=== PATIENT | male | born 1965 | race Caucasian/White ===

== ENCOUNTER 2019-08-25 13:05 | Inpatient (IN) | payer OTHER ==
[~2019-08-25] VITALS: Ht 154.9 cm; Wt 45.4 kg
[2019-08-25 13:07] VITALS: BP 142/81
--- NOTE | 2019-08-25 14:18 | NUR ---
SOCIAL SERVICE HERE TO FIND OUT WHERE TO PLACE PT WHILE BOTH HIS PARENTS ARE ADMITTED HERE.
[2019-08-25 16:00] VITALS: BP 151/90
[2019-08-25] MEDS ORDERED: HYDROCODON-ACE1 EACH PO (16:39)
[2019-08-25] MEDS ORDERED: PRAVACHOL40 MG PO (16:39)
[2019-08-25] MEDS ORDERED: OMEPRAZOLE40 MG PO (16:40)
[2019-08-25] MEDS ORDERED: ZANAFLEX4 M2 PO (16:40)
[2019-08-25] MEDS ORDERED: LEVOTHYROXINE50 MCG PO (16:40)
[2019-08-25] MEDS ORDERED: IRON325 M1 PO (16:41)
[2019-08-25] MEDS ORDERED: METFORMIN HCL500 M3 PO (16:41)
[2019-08-25] MEDS ORDERED: B-12500 MC1 PO (16:41)
[2019-08-25] MEDS ORDERED: VITAMIN D31000 UNI1 PO (16:42)
--- NOTE | 2019-08-25 16:53 | NUR ---
Pt arrived to floor without iv from ER. Pt currently only has iv morphine prn for severe pain ordered. Pt currently denies any pain. Spoke with Dr. Bernal regarding this and she states to leave iv out at this time. Pt had stated to me that he did not like IV's and this is why I called to question this as well as what was stated above.
[2019-08-25 17:05] LABS: BASO % 0.7 % (0.0-1.0); EOS % 0.9 % (1.0-4.0); HEMATOCRIT 39.1 % (42.0-52.0); HEMOGLOBIN 13.4 g/dl (14.0-18.0); LYMPH # 1.2 10*3/uL (1.3-4.4); LYMPH % 26.1 % (27.0-41.0); MEAN CELL VOLUME 98.2 fl (80.0-94.0); MEAN CORPUSCULAR HGB 33.7 pg (27.0-31.0); MEAN CORPUSCULAR HGB CONC 34.3 g/dl (33.0-37.0); MEAN PLATELET VOLUME 9.5 fl (9.6-12.3); MONO # 0.4 10*3/uL (0.1-1.0); MONO % 9.3 % (3.0-9.0); NEUT # 2.8 10*3/uL (2.3-7.9); NEUT % 62.5 % (47.0-73.0); PLATELET COUNT AUTOMATED 137 10*3/uL (130-400); RED BLOOD COUNT 3.98 10*6/uL (4.50-5.90); RED CELL DISTRI WIDTH 12.8 % (0-14.5); WHITE BLOOD COUNT 4.4 10*3/uL (4.8-10.8)
[2019-08-25 17:24] LABS: ALBUMIN 3.6 gm/dl (3.1-4.5); ALKALINE PHOSPHATASE 59 U/L (45-117); BUN 12 mg/dl (7-24); CHLORIDE 107 mmol/L (98-107); CREATININE 0.92 mg/dL (0.70-1.30); POTASSIUM 3.6 mmol/L (3.5-5.1); SGOT/AST 14 IU/L (3-35); SGPT/ALT 18 U/L (12-78); SODIUM 142 mmol/L (136-145)
[2019-08-25 20:00] VITALS: BP 109/64
[2019-08-26] VITALS: BP 98/55
--- NOTE | 2019-08-26 | NUR ---
RESTING IN BED WITH EYES CLOSED. RESPIRATIONS EASY & UNLABORED ON ROOM AIR. CALL LIGHT WITHIN REACH.
--- NOTE | 2019-08-26 06:00 | NUR ---
TOOK PO MEDICATIONS WITHOUT DIFFICULTY. VOICES NO C/O AT THIS TIME. BED ALARM ON; BED IN LOW LOCKED POSITION.
[2019-08-26 06:43] LABS: BASO % 0.8 % (0.0-1.0); EOS # 0.1 10*3/uL (0.0-0.4); EOS % 2.2 % (1.0-4.0); HEMATOCRIT 38.6 % (42.0-52.0); LYMPH # 1.3 10*3/uL (1.3-4.4); LYMPH % 35.5 % (27.0-41.0); MEAN CORPUSCULAR HGB CONC 33.7 g/dl (33.0-37.0); MEAN PLATELET VOLUME 10.2 fl (9.6-12.3); MONO # 0.4 10*3/uL (0.1-1.0); MONO % 10.6 % (3.0-9.0); NEUT # 1.9 10*3/uL (2.3-7.9); NEUT % 50.6 % (47.0-73.0); PLATELET COUNT AUTOMATED 145 10*3/uL (130-400); RED BLOOD COUNT 3.94 10*6/uL (4.50-5.90); RED CELL DISTRI WIDTH 12.7 % (0-14.5); WHITE BLOOD COUNT 3.7 10*3/uL (4.8-10.8)
[2019-08-26 07:00] LABS: ALBUMIN 3.2 gm/dl (3.1-4.5); BUN 10 mg/dl (7-24); CHLORIDE 109 mmol/L (98-107); CHOLESTEROL 107 mg/dL (<200); CREATININE 0.96 mg/dL (0.70-1.30); POTASSIUM 3.7 mmol/L (3.5-5.1); SGOT/AST 12 IU/L (3-35); SGPT/ALT 17 U/L (12-78); SODIUM 142 mmol/L (136-145); TRIGLYCERIDES 75 mg/dl (<150); VLDL CHOLESTEROL 15 mg/dL (6-40)
[2019-08-26 07:12] LABS: ALKALINE PHOSPHATASE 55 U/L (45-117); FREE T4 1.13 ng/dl (0.76-1.46); HDL CHOLESTEROL 39 mg/dl (40-60); LDL CHOLESTEROL 53 mg/dL (9-159); THYROID STIM HORMONE (HS) 0.123 uIU/ml (0.358-4.75); TOTAL PROTEIN 6.3 gm/dL (6.4-8.2)
[2019-08-26 08:24] LABS: VITAMIN D, 25-HYDROXY 64.1 ng/mL (30-100)
--- NOTE | 2019-08-26 10:07 | NUR ---
PHYSICAL THERAPY Physical therapy evaluation completed, 5E. Details and evaluation to follow. Moderate complexity determined after evaluation/chart review, [address]. PT to work on endurance, strength, gait, safety, transfers, balance. Recommending SNF at discharge. Thank you Olga Gordon, PT, DPT
--- NOTE | 2019-08-26 11:59 | NUR ---
Occupational Therapy evaluation completed on 5 with full eval to follow. PRecautions include fall risk; bed/chair alarm,impaired intellectual functioning,unsafe cane use for poor stand balance,moderate complexity level 56652,min/mod assist w/ ADLs with inconsitant performance. Recommend OT per POC and SNF to enable max ability to function and return home w/ parents with able. Thank you. Reina Todd OTR/L
[2019-08-26 12:00] VITALS: BP 121/67
--- NOTE | 2019-08-26 12:35 | NUR ---
DETONATOR MAKER spoke with the patients mother who stated she would like the patient to be referred to [facility]. DETONATOR MAKER faxed new referral to [facility]. Will need PT Eval to complete the referral. -ELENA Petersen
--- NOTE | 2019-08-26 12:48 | NUR ---
Game Attendant in to talk to patient. Patient states lives at HOME with PARENTS. There are FEW steps in the home. Physician: RIRI BURDEN Pharmacy: [facility] Home health services: NONE Patient's level of ADLs: INDEPENDENT Patient has working utilities: YES DME: NONE Follow-up physician's appointment after d/c: WILL BE MADE BY HOSPITALIST NURSE DIRECTOR ON DISCHARGE Does patient want to access PORTAL?: NO Discharge plan PT HAS DOWNS SYNDROME AND LIVES WITH HIS PARENTS AT HOME. MOTHER AND FATHER ARE BOTH PATIENTS AT [facility] ALSO. PT HAS BEEN REFERRED TO [facility]. WILL CONTINUE TO FOLLOW. . LONA CALHOUN
--- NOTE | 2019-08-26 13:26 | NUR ---
TRAIN OPERATOR faxed PT Eval and asked that the PRECERT be started. -SUNIL PetersenW
[2019-08-26 16:00] VITALS: BP 155/77
[2019-08-26 20:00] VITALS: BP 117/62
[2019-08-27] VITALS: BP 115/74
[2019-08-27 08:00] VITALS: BP 122/70; BP 136/66
--- NOTE | 2019-08-27 09:31 | NUR ---
EDITORIAL CARTOONIST completed HENs. -ELENA Petersen
--- NOTE | 2019-08-27 10:15 | NUR ---
PHYSICAL THERAPY Patient seen this am 1:1 for therapy visit and was resting supine in bed upon therapist arrival. Patient identified by name / and reports no new c/o's at this time. Patient needed multiple v/c's to complete all task this session secondary to mild cognitive issues. Patient transfers supine to sit EOB, then sit to stand CGA x 1 and ambulates with use of wh walker, CGA, 45'x 2, demonstrating POOR walker safety / navigation. Patient also very unsteady during all turns and can be impulsive at times, contributing to unsteady gait pattern. Patient returned to supine in bed and remained with call light, tray table, telephone and bed alarm for safety. Will continue per POC as tolerated, total treatment time 17 minutes. Juvenal Snyder, LEHR OPERATOR
--- NOTE | 2019-08-27 10:25 | NUR ---
OT NOTE Pt was seen this A.M. 1:1 for 16 minute OT session. Upon arrival pt was supine in bed. Pt identified by name and and had no complaints at this time. Pt transferred supine to sit EOB with CGA. While sitting EOB pt donned B shoes with Ernesto due to assist with sequencing. Sit to stand completed from bed level with CGA and use of w/w. Functional mobility completed around the room to the bathroom and back with Ernesto due to pt requiring assist with walker navigation and correcting occasional LOB due to being impulsive. Challenged pt's static standing tolerance needed for increased I in self care tasks and functional transfers, pt was able to tolerate aprox 5 minutes at a time before sitting due to fatigue. Pt then returned to the EOB where he transferred sit to supine with CGA. Throughout entire session pt had poor safety awareness, poor attention to task, and required multiple verbal prompts for processing information. Pt was left supine in bed with call light in hand, tray table in place, and bed alarm activated for safety. Continue with rec D/C plan to SNF. MANNIE Horn
--- NOTE | 2019-08-27 11:56 | NUR ---
PT REQUIRES A PRECERT FOR [facility]. WILL CONTINUE TO FOLLOW.
--- NOTE | 2019-08-27 11:58 | NUR ---
BACTERIOLOGIST FOOD faxed updates to [facility]. Still waiting on PRECERT. -ELENA Petersen
[2019-08-27 12:00] VITALS: BP 140/64
--- NOTE | 2019-08-27 15:21 | NUR ---
PRECERT is still pending. ELENA spoke with [facility] to notify the floor if PRECERT is obtained after 3:30pm today. ELENA spoke with the patients mother Caitlin. She stated it was okay for her cousin Chetna Gutierrez to transport the patient to [facility]. Chetna Gutierrez- [phone]. ELENA spoke with Chetna Gutierrez who stated she would be able to do so, just to give her a call. ELENA notified the Work Clerks. -ELENA Petersen
[2019-08-27 16:00] VITALS: BP 138/64
--- NOTE | 2019-08-27 16:33 | NUR ---
PHYSICAL THERAPY CO-SIGN I approve of the Physical Therapy notes written above. GRISELDA SARMIENTO PT,DPT
[2019-08-27 20:00] VITALS: BP 145/65
[2019-08-28] VITALS: BP 120/63
[2019-08-28 08:00] VITALS: BP 144/74
[2019-08-28 12:00] VITALS: BP 142/72
[2019-08-28 16:00] VITALS: BP 142/72
--- NOTE | 2019-08-28 19:15 | NUR ---
ARRIVED ON SHIFT, INTRODUCED TO PATIENT, BEDSIDE REPORT RECEIVED, NO NEEDS VOICED AT THIS TIME, WHITE BOARD UPDATED.
[2019-08-28 20:00] VITALS: BP 119/60
--- NOTE | 2019-08-28 20:09 | NUR ---
Shift chart check completed.
[2019-08-29] VITALS: BP 134/95
--- NOTE | 2019-08-29 05:00 | NUR ---
Patient sleeping. Respirations relaxed and easy. Siderails up x 2. Wheellocks on, bed in lowest position, call light within reach. AUSTIN RODRIGUEZ
[2019-08-29 08:00] VITALS: BP 136/69
[2019-08-29 12:00] VITALS: BP 100/58
--- NOTE | 2019-08-29 15:29 | NUR ---
24 HR chart check completed.
[2019-08-29 16:00] VITALS: BP 142/67
[2019-08-29 20:00] VITALS: BP 144/68
[2019-08-30] VITALS: BP 119/55
--- NOTE | 2019-08-30 03:37 | NUR ---
PT CO BACK PAIN. MEDICATED WITH PRN TYLENOL. CALL LIGHT WITHIN REACH. WILL CONTINUE TO MONITOR.
--- NOTE | 2019-08-30 04:30 | NUR ---
PT SLEEPING. NO SIGNS OF DISTRESS NOTED. TYLENOL SEEMS TO BE EFFECTIVE. CALL LIGHT WITHIN REACH. WILL CONTINUE TO MONITOR.
[2019-08-30 06:18] LABS: BASO % 0.6 % (0.0-1.0); EOS # 0.1 10*3/uL (0.0-0.4); EOS % 2.7 % (1.0-4.0); HEMATOCRIT 38.5 % (42.0-52.0); HEMOGLOBIN 13.3 g/dl (14.0-18.0); LYMPH # 1.2 10*3/uL (1.3-4.4); LYMPH % 22.6 % (27.0-41.0); MEAN CELL VOLUME 95.3 fl (80.0-94.0); MEAN CORPUSCULAR HGB 32.9 pg (27.0-31.0); MEAN CORPUSCULAR HGB CONC 34.5 g/dl (33.0-37.0); MEAN PLATELET VOLUME 9.7 fl (9.6-12.3); MONO # 0.5 10*3/uL (0.1-1.0); MONO % 9.2 % (3.0-9.0); NEUT # 3.3 10*3/uL (2.3-7.9); NEUT % 64.3 % (47.0-73.0); PLATELET COUNT AUTOMATED 148 10*3/uL (130-400); RED BLOOD COUNT 4.04 10*6/uL (4.50-5.90); RED CELL DISTRI WIDTH 12.8 % (0-14.5); WHITE BLOOD COUNT 5.1 10*3/uL (4.8-10.8)
[2019-08-30 06:43] LABS: CREATININE 0.84 mg/dL (0.70-1.30)
--- NOTE | 2019-08-30 07:00 | NUR ---
BS 82. METFORMIN HELD. WILL MONITOR. CALL LIGHT WITHIN REACH.
--- NOTE | 2019-08-30 07:15 | NUR ---
ARRIVED ON SHIFT, INTRODUCED TO PATIENT, BEDSIDE REPORT RECEIVED, WHITEBOARD UPDATED, NO NEEDS VOICED AT THIS TIME.
--- NOTE | 2019-08-30 07:37 | NUR ---
Still waiting on PRECERT. DIRT CONTRACTOR faxed updates to [facility]. Will need updated PT/OT. -ELENA Petersen
[2019-08-30 08:00] VITALS: BP 156/78
--- NOTE | 2019-08-30 08:26 | NUR ---
Shift chart check completed.
--- NOTE | 2019-08-30 09:45 | NUR ---
PHYSICAL THERAPY Patient presented to therapy in sitting position at EOB with bed alarm activated. Patient reports pain in the R knee. Patient was identified by name marina BABB. Patient gives informed consent for treatment. Patient performed sit to stand from EOB with CGA X 1 for safety. Patient ambulated with Wh Walker and CGA X 1 for 50' x 1 and then again ,for 30' x 1 with 1 moderate LOB the patient corrected himself. Patient required verbal cues for upright posture and pushing off of chair with one hand to stand. Patient performed TUG TEST with use of one UE to sit to sole edge inker machine 30 seconds with CGA. Patient then performed 4 sit to stands in 30 seconds total with MOD A X 2 sit to stand each time. Patient then ambulated with Wh Walker and CGA X 1 for safety 20' x 1 back to EOB. Patient transferred back to supine in bed with SBA. Patient was left in supine in bed with head of bed elevated, call light within reach and bed alarm activated. Patient was 1:1 with this HIDE AND SKIN PROCESSING WORKER for 20 minutes total. AKIRA VARGAS HIDE AND SKIN PROCESSING WORKER
--- NOTE | 2019-08-30 09:45 | NUR ---
OT NOTE Pt was seen this A.M. 1:1 for 15 minute OT session. Upon arrival pt was supine in bed. Pt identified by name and and had complaints of R knee pain which he did not rate on 0-10 paion scale at this time. Pt transferred supine to sit EOB with SBA. While sitting EOB pt donned B socks with Ernesto for assist with inital start over his L foot. Sit to stand completed from bed level with CGA and use of w/w for UE support. Functional mobility completed to the bathroom with CGA and use of w/w, pt had two LOB that occured due to L foot drag that required Ernesto to correct. Pt transferred on/off standard commode with Ernesto due to low surface. Pt then stood sink side while washing his hands with Ernesto for assist with sequencing of task. Functional mobility then completed back to the EOB with CGA and use of w/w. Pt required education for safe turning technique with the walker due to picking up all four points increasing risk of falls. Pt transferred back into bed sit to supine with SBA. There he was left with call light in hand, tray table in place, and bed alarm activated for safety. Continue with rec D/C plan to SNF. LYNDON Horn/Brittany
--- NOTE | 2019-08-30 10:30 | NUR ---
CERTIFIER faxed updated PT/OT notes to [facility]. -ELENA Petersen
--- NOTE | 2019-08-30 10:48 | NUR ---
CARBON SETTER left message for Dariana Snyder at [facility] in regards to the patient having an assessment appointment. -ELENA Petersen
--- NOTE | 2019-08-30 11:31 | NUR ---
WAITING ON PRECERT FOR [facility]. WILL CONTINUE TO FOLLOW.
[2019-08-30 12:00] VITALS: BP 87/59
--- NOTE | 2019-08-30 13:43 | NUR ---
PRECERT has been obtained. Patient can go to [facility] if medically stable. -ELENA Petersen
[2019-08-30] MEDS ORDERED: HYDROCODON-ACE1 EACH PO (13:56)
--- NOTE | 2019-08-30 15:06 | NUR ---
PRECERT has been obtained. MOLD PARTER notified of patient discharge. MOLD PARTER reached out to Chetna Gutierrez, she was unable to transport the patient. MOLD PARTER reached out to [facility] they are booked for the day. MOLD PARTER reached out to patient insurance 2x, with no answer. MOLD PARTER spoke with the patients mom. She attempted to reach out to neighbors to no one answering. MOLD PARTER reached out to [facility]. They are able to transport the patient at 3:25 and the patient will arrive at [facility] approximately 3:50. ELENA notifed RNSavannah and provided her with $2.00 to give to the business controller. ELENA also notified Work Career [employer] [place] and [facility]. MOLD PARTER to fax discharge orders to [facility]. -ELENA Petersen
--- NOTE | 2019-08-30 15:15 | NUR ---
CALL PLACED TO [facility], NURSE TO NURSE REPORT GIVEN TO KARLIE, ADVISED PATIENT WAS TO LEAVE HERE AT 1525, PROVIDE NUMBER TO FLOOR SHOULD ANY CONCERNS ARRISE.
--- NOTE | 2019-08-30 15:23 | NUR ---
Discharge instructions reviewed with patient/family. Patient receptive and verbalizes understanding. Follow-up care arranged. Written instructions given to patient/family.PATIENT TAKEN BY W/C TO LOBBY AND ASSISTED ONTO CARTS BUS AND BUCKLED IN, DISCHARGED PAPERS GIVEN TO CERTIFIED CREDIT COUNSELOR. AUSTIN RODRIGUEZ
--- NOTE | 2019-08-31 07:35 | NUR ---
AGING DEPARTMENT SUPERVISOR faxed Discharge orders to [facility]. -ELENA Petersen
--- NOTE | 2019-08-31 16:38 | NUR ---
OCCUPATIONAL THERAPY CO-SIGN I approve of the Occupational Therapy notes written above. ANDREA MORIN OTR/Brittany
--- NOTE | 2019-09-03 16:34 | NUR ---
PHYSICAL THERAPY CO-SIGN I approve of the Physical Therapy notes written above. SHILPA HERNANEDZ, PT, DPT
== END 2019-08-30 15:23 | disposition other institution (70) | DRG 604 ==
LOC: ED → 5E 15:40 → EDHOLD 15:40 → 5E 15:52
PROVIDERS: Registered Nurse; ADMIT Family Medicine
DX: S60.221A Contusion of right hand, initial encounter (principal); E11.00 Type 2 diabetes mellitus with hyperosmolarity without nonketotic hyperglycemic-hyperosmolar coma (NKHHC); E03.9 Hypothyroidism, unspecified; R55 Syncope and collapse; E78.00 Pure hypercholesterolemia, unspecified; W01.0XXA Fall on same level from slipping, tripping and stumbling without subsequent striking against object, initial encounter; G89.29 Other chronic pain; M54.9 Dorsalgia, unspecified; Y93.89 Activity, other specified; Y92.89 Other specified places as the place of occurrence of the external cause; Y99.8 Other external cause status; Z86.73 Personal history of transient ischemic attack (TIA), and cerebral infarction without residual deficits; Z79.84 Long term (current) use of oral hypoglycemic drugs; Q90.9 Down syndrome, unspecified; Z83.3 Family history of diabetes mellitus; Z82.49 Family history of ischemic heart disease and other diseases of the circulatory system; Z88.2 Allergy status to sulfonamides; Z88.8 Allergy status to other drugs, medicaments and biological substances

== ENCOUNTER 2020-02-02 11:12 | Emergency (ER) | payer OTHER ==
[~2020-02-02] VITALS: Ht 154.9 cm; Wt 51.3 kg
[~2020-02-02 11:12] MED LIST: B-12500 MC1 PO; HYDROCODON-ACE1 EACH PO; IRON325 M1 PO; LEVOTHYROXINE50 MCG PO; METFORMIN HCL500 M3 PO; OMEPRAZOLE40 MG PO; PRAVACHOL40 MG PO; VITAMIN D31000 UNI1 PO; ZANAFLEX4 M2 PO
[2020-02-02 12:06] LABS: BASO # 0.1 10*3/uL (0.0-0.1); EOS # 0.1 10*3/uL (0.0-0.4); EOS % 1.6 % (1.0-4.0); HEMATOCRIT 44.4 % (42.0-52.0); HEMOGLOBIN 14.6 g/dl (14.0-18.0); LYMPH # 1.3 10*3/uL (1.3-4.4); LYMPH % 26.3 % (27.0-41.0); MEAN CELL VOLUME 100.5 fl (80.0-94.0); MEAN CORPUSCULAR HGB CONC 32.9 g/dl (33.0-37.0); MEAN PLATELET VOLUME 9.5 fl (9.6-12.3); MONO # 0.4 10*3/uL (0.1-1.0); MONO % 8.6 % (3.0-9.0); NEUT # 3.1 10*3/uL (2.3-7.9); NEUT % 62.1 % (47.0-73.0); PLATELET COUNT AUTOMATED 183 10*3/uL (130-400); RED BLOOD COUNT 4.42 10*6/uL (4.50-5.90); RED CELL DISTRI WIDTH 12.5 % (0-14.5)
[2020-02-02 12:16] LABS: ACT PARTIAL THROMBO TIME 28.1 SECONDS (20.0-32.1); INTERNATIONAL NORM RATIO 1.1 (2.0-3.5)
[2020-02-02 12:23] LABS: ALBUMIN 3.9 gm/dl (3.1-4.5); ALKALINE PHOSPHATASE 104 U/L (45-117); BUN 10 mg/dl (7-24); CHLORIDE 106 mmol/L (98-107); CREATININE 1.12 mg/dL (0.70-1.30); LIPASE 88 U/L (73-393); POTASSIUM 4.2 mmol/L (3.5-5.1); SGOT/AST 16 IU/L (3-35); SGPT/ALT 18 U/L (12-78); SODIUM 141 mmol/L (136-145); TOTAL PROTEIN 7.8 gm/dL (6.4-8.2)
[2020-02-02 12:31] LABS: TROPONIN I < 0.015 ng/ml (<0.045)
[2020-02-02 13:51] LABS: BILIRUBIN NEGATIVE (NEGATIVE); BLOOD 1+ (NEGATIVE); CLARITY CLEAR (CLEAR); COLOR YELLOW (YELLOW); GLUCOSE NEGATIVE (NEGATIVE); KETONE NEGATIVE (NEGATIVE); LEUKO ESTERASE NEGATIVE (NEGATIVE); NITRITE NEGATIVE (NEGATIVE); UROBILINOGEN 0.2 E.U./dl (0.2-1.0)
== END 2020-02-02 17:00 ==
LOC: ED 11:12
PROVIDERS: Emergency Medicine
DX: R40.4 Transient alteration of awareness (principal); E78.00 Pure hypercholesterolemia, unspecified; E03.9 Hypothyroidism, unspecified; Z88.0 Allergy status to penicillin; Z88.2 Allergy status to sulfonamides; Z88.8 Allergy status to other drugs, medicaments and biological substances; Z79.899 Other long term (current) drug therapy; Z79.84 Long term (current) use of oral hypoglycemic drugs

== ENCOUNTER 2020-05-15 14:17 | Inpatient (IN) | payer OTHER ==
[~2020-05-15] VITALS: Ht 152.4 cm; Wt 45.4 kg
[2020-05-15 14:22] VITALS: BP 92/40
[2020-05-15 14:37] LABS: BASO % 0.3 % (0.0-1.0); EOS # 0.2 10*3/uL (0.0-0.4); EOS % 1.7 % (1.0-4.0); HEMATOCRIT 35.3 % (42.0-52.0); LYMPH # 1.3 10*3/uL (1.3-4.4); LYMPH % 14.8 % (27.0-41.0); MEAN CELL VOLUME 98.6 fl (80.0-94.0); MEAN CORPUSCULAR HGB CONC 33.4 g/dl (33.0-37.0); MEAN PLATELET VOLUME 9.6 fl (9.6-12.3); MONO # 0.5 10*3/uL (0.1-1.0); MONO % 5.6 % (3.0-9.0); NEUT # 6.7 10*3/uL (2.3-7.9); NEUT % 77.4 % (47.0-73.0); PLATELET COUNT AUTOMATED 180 10*3/uL (130-400); RED BLOOD COUNT 3.58 10*6/uL (4.50-5.90); RED CELL DISTRI WIDTH 13.8 % (0-14.5); WHITE BLOOD COUNT 8.6 10*3/uL (4.8-10.8)
[2020-05-15 14:49] VITALS: BP 105/62
[2020-05-15 14:49] LABS: ACT PARTIAL THROMBO TIME 29.2 SECONDS (20.0-32.1); INTERNATIONAL NORM RATIO 1.1 (2.0-3.5)
[2020-05-15 14:54] LABS: ALBUMIN 2.5 gm/dl (3.1-4.5); ALKALINE PHOSPHATASE 77 U/L (45-117); BUN 14 mg/dl (7-24); CHLORIDE 114 mmol/L (98-107); CPK 77 U/L (39-308); CREATININE 1.01 mg/dL (0.70-1.30); POTASSIUM 3.2 mmol/L (3.5-5.1); SGOT/AST 9 IU/L (3-35); SGPT/ALT 8 U/L (12-78); SODIUM 144 mmol/L (136-145)
[2020-05-15 14:55] LABS: TROPONIN I < 0.015 ng/ml (<0.045)
[2020-05-15 15:12] VITALS: BP 97/58
[2020-05-15 16:00] VITALS: BP 104/66
[2020-05-15 16:10] VITALS: BP 119/67
[2020-05-15] MEDS ORDERED: TYLENOL325 M1 PO (16:34)
[2020-05-15] MEDS ORDERED: AMLODIPINE BESYL5 MG PO (16:35)
[2020-05-15] MEDS ORDERED: DULCOLAX STOOL100 M1 PO (16:37)
[2020-05-15] MEDS ORDERED: K-TAB20 MEQ PO (16:38)
[2020-05-15] MEDS ORDERED: EXELON1 EAC1 T (16:39)
[2020-05-15 18:17] LABS: BILIRUBIN NEGATIVE (NEGATIVE); BLOOD TRACE-INTACT (NEGATIVE); CLARITY CLEAR (CLEAR); COLOR YELLOW (YELLOW); GLUCOSE NEGATIVE (NEGATIVE); KETONE NEGATIVE (NEGATIVE); SPECIFIC GRAVITY 1.015 (1.005-1.030)
[2020-05-15 18:18] LABS: LEUKO ESTERASE NEGATIVE (NEGATIVE); NITRITE NEGATIVE (NEGATIVE); PH 6.5 (5.0-9.0); UROBILINOGEN 0.2 E.U./dl (0.2-1.0)
[2020-05-15 18:24] LABS: BACTERIA TRACE; MUCOUS 1+; WBC 0-2 wbc/hpf (0-5)
[2020-05-15 20:00] VITALS: BP 117/62
[2020-05-16] VITALS: BP 98/73
[2020-05-16 05:46] LABS: ALBUMIN 2.6 gm/dl (3.1-4.5); ALKALINE PHOSPHATASE 79 U/L (45-117); BUN 8 mg/dl (7-24); CHLORIDE 114 mmol/L (98-107); CREATININE 0.78 mg/dL (0.70-1.30); HDL CHOLESTEROL 25 mg/dl (40-60); POTASSIUM 3.8 mmol/L (3.5-5.1); SGOT/AST 14 IU/L (3-35); SGPT/ALT 9 U/L (12-78); SODIUM 144 mmol/L (136-145); TOTAL PROTEIN 6.1 gm/dL (6.4-8.2); TRIGLYCERIDES 104 mg/dl (<150); VLDL CHOLESTEROL 21 mg/dL (6-40)
[2020-05-16 05:54] LABS: CHOLESTEROL 92 mg/dL (<200); LDL CHOLESTEROL 46 mg/dL (9-159)
[2020-05-16 06:12] LABS: BASO % 0.4 % (0.0-1.0); EOS # 0.2 10*3/uL (0.0-0.4); EOS % 2.1 % (1.0-4.0); HEMATOCRIT 38.7 % (42.0-52.0); LYMPH # 0.9 10*3/uL (1.3-4.4); LYMPH % 11.5 % (27.0-41.0); MEAN CELL VOLUME 99.7 fl (80.0-94.0); MEAN CORPUSCULAR HGB 32.2 pg (27.0-31.0); MEAN CORPUSCULAR HGB CONC 32.3 g/dl (33.0-37.0); MEAN PLATELET VOLUME 10.3 fl (9.6-12.3); MONO # 0.4 10*3/uL (0.1-1.0); MONO % 5.7 % (3.0-9.0); NEUT # 6.2 10*3/uL (2.3-7.9); PLATELET COUNT AUTOMATED 189 10*3/uL (130-400); RED BLOOD COUNT 3.88 10*6/uL (4.50-5.90); RED CELL DISTRI WIDTH 13.7 % (0-14.5); WHITE BLOOD COUNT 7.7 10*3/uL (4.8-10.8)
[2020-05-16 08:00] VITALS: BP 128/68
[2020-05-16 12:00] VITALS: BP 122/67
[2020-05-16 16:00] VITALS: BP 129/61
[2020-05-16 20:00] VITALS: BP 132/58
[2020-05-17] VITALS: BP 114/66
[2020-05-17 06:48] LABS: BASO % 0.2 % (0.0-1.0); EOS # 0.1 10*3/uL (0.0-0.4); EOS % 0.4 % (1.0-4.0); HEMATOCRIT 38.1 % (42.0-52.0); LYMPH # 1.2 10*3/uL (1.3-4.4); LYMPH % 8.7 % (27.0-41.0); MEAN CELL VOLUME 97.7 fl (80.0-94.0); MEAN CORPUSCULAR HGB 32.3 pg (27.0-31.0); MEAN CORPUSCULAR HGB CONC 33.1 g/dl (33.0-37.0); MONO # 0.7 10*3/uL (0.1-1.0); MONO % 5.2 % (3.0-9.0); NEUT # 11.6 10*3/uL (2.3-7.9); NEUT % 85.1 % (47.0-73.0); PLATELET COUNT AUTOMATED 187 10*3/uL (130-400); RED CELL DISTRI WIDTH 13.3 % (0-14.5); WHITE BLOOD COUNT 13.6 10*3/uL (4.8-10.8)
[2020-05-17 07:01] LABS: BUN 7 mg/dl (7-24); CHLORIDE 108 mmol/L (98-107); CREATININE 0.77 mg/dL (0.70-1.30); POTASSIUM 3.6 mmol/L (3.5-5.1); SODIUM 141 mmol/L (136-145)
[2020-05-17 08:00] VITALS: BP 106/58
[2020-05-17 12:00] VITALS: BP 108/59
[2020-05-17 16:00] VITALS: BP 109/57
[2020-05-17 20:00] VITALS: BP 95/58
[2020-05-18] VITALS: BP 143/83
[2020-05-18 06:16] LABS: BASO # 0.1 10*3/uL (0.0-0.1); BASO % 0.3 % (0.0-1.0); EOS # 0.1 10*3/uL (0.0-0.4); EOS % 0.8 % (1.0-4.0); HEMATOCRIT 43.6 % (42.0-52.0); LYMPH # 1.2 10*3/uL (1.3-4.4); LYMPH % 8.1 % (27.0-41.0); MEAN CORPUSCULAR HGB 32.1 pg (27.0-31.0); MEAN CORPUSCULAR HGB CONC 32.8 g/dl (33.0-37.0); MEAN PLATELET VOLUME 9.8 fl (9.6-12.3); MONO % 7.1 % (3.0-9.0); NEUT # 12.2 10*3/uL (2.3-7.9); NEUT % 83.3 % (47.0-73.0); PLATELET COUNT AUTOMATED 212 10*3/uL (130-400); RED BLOOD COUNT 4.45 10*6/uL (4.50-5.90); RED CELL DISTRI WIDTH 13.3 % (0-14.5); WHITE BLOOD COUNT 14.6 10*3/uL (4.8-10.8)
[2020-05-18 06:18] LABS: BUN 9 mg/dl (7-24); CHLORIDE 109 mmol/L (98-107); POTASSIUM 3.2 mmol/L (3.5-5.1); SODIUM 142 mmol/L (136-145)
[2020-05-18 08:00] VITALS: BP 108/62
[2020-05-18 12:00] VITALS: BP 109/66
[2020-05-18 16:00] VITALS: BP 106/63
[2020-05-18 20:00] VITALS: BP 103/64
[2020-05-19] VITALS: BP 122/67
[2020-05-19 07:19] LABS: BASO % 0.7 % (0.0-1.0); EOS # 0.2 10*3/uL (0.0-0.4); HEMATOCRIT 41.9 % (42.0-52.0); LYMPH # 1.4 10*3/uL (1.3-4.4); LYMPH % 24.3 % (27.0-41.0); MEAN CELL VOLUME 100.7 fl (80.0-94.0); MEAN CORPUSCULAR HGB 31.7 pg (27.0-31.0); MEAN CORPUSCULAR HGB CONC 31.5 g/dl (33.0-37.0); MEAN PLATELET VOLUME 9.9 fl (9.6-12.3); MONO # 0.5 10*3/uL (0.1-1.0); NEUT # 3.6 10*3/uL (2.3-7.9); NEUT % 63.1 % (47.0-73.0); PLATELET COUNT AUTOMATED 204 10*3/uL (130-400); RED BLOOD COUNT 4.16 10*6/uL (4.50-5.90); RED CELL DISTRI WIDTH 13.8 % (0-14.5); WHITE BLOOD COUNT 5.6 10*3/uL (4.8-10.8)
[2020-05-19 07:35] LABS: BUN 8 mg/dl (7-24); CHLORIDE 114 mmol/L (98-107); CREATININE 0.84 mg/dL (0.70-1.30); POTASSIUM 3.5 mmol/L (3.5-5.1); SODIUM 146 mmol/L (136-145)
[2020-05-19 08:00] VITALS: BP 129/61
[2020-05-19] MEDS ORDERED: Nystatin 100,000 UNI PO (11:39)
[2020-05-19] MEDS ORDERED: RISPERIDONE0.25 M2 PO (11:39)
[2020-05-19] MEDS ORDERED: VANCOMYCIN HCL125 MG PO (11:39)
[2020-05-19] MEDS ORDERED: Humalog SQ (11:39)
[2020-05-19] MEDS ORDERED: HYDROCODON-ACE1 EACH PO (11:39)
[2020-05-19 12:00] VITALS: BP 132/69
== END 2020-05-19 14:45 | disposition other institution (70) | DRG 371 ==
LOC: ED 14:17 → EDHOLD 15:17 → 4E 15:37
PROVIDERS: Emergency Medicine; Internal Medicine; Student in an Organized Health Care Education/Training Program; ADMIT Internal Medicine
DX: A04.72 Enterocolitis due to Clostridium difficile, not specified as recurrent (principal); E43 Unspecified severe protein-calorie malnutrition; G93.41 Metabolic encephalopathy; B37.0 Candidal stomatitis; Z68.1 Body mass index [BMI] 19.9 or less, adult; I10 Essential (primary) hypertension; I95.2 Hypotension due to drugs; T50.995A Adverse effect of other drugs, medicaments and biological substances, initial encounter; D53.9 Nutritional anemia, unspecified; E87.8 Other disorders of electrolyte and fluid balance, not elsewhere classified; E78.00 Pure hypercholesterolemia, unspecified; G89.29 Other chronic pain; K05.10 Chronic gingivitis, plaque induced; M54.9 Dorsalgia, unspecified; R00.1 Bradycardia, unspecified; E87.6 Hypokalemia; R44.1 Visual hallucinations; F41.9 Anxiety disorder, unspecified; E03.9 Hypothyroidism, unspecified; T46.1X5A Adverse effect of calcium-channel blockers, initial encounter; N27.0 Small kidney, unilateral; E78.5 Hyperlipidemia, unspecified; E11.65 Type 2 diabetes mellitus with hyperglycemia; Y92.89 Other specified places as the place of occurrence of the external cause; Q90.9 Down syndrome, unspecified; Z88.0 Allergy status to penicillin; Z88.2 Allergy status to sulfonamides; Z88.8 Allergy status to other drugs, medicaments and biological substances; Z83.3 Family history of diabetes mellitus; Z82.49 Family history of ischemic heart disease and other diseases of the circulatory system; Z84.89 Family history of other specified conditions; Z79.899 Other long term (current) drug therapy; Z86.73 Personal history of transient ischemic attack (TIA), and cerebral infarction without residual deficits; Z03.818 Encounter for observation for suspected exposure to other biological agents ruled out

== ENCOUNTER → 2020-09-25 | Outpatient (CLI) | payer OTHER ==
[~2020-09-25] MED LIST changes: +AMLODIPINE BESYL5 MG PO; +DULCOLAX STOOL100 M1 PO; +EXELON1 EAC1 T; +FLAGYL500 MG PO; +HYDROCODONE-AC1 EAC1 PO; +Humalog SQ; +K-TAB20 MEQ PO; +LEVOTHYROXINE75 MCG PO; +Nystatin 100,000 UNI PO; +PRAVASTATIN SOD80 MG PO; +PREDNISONE20 M1 PO; +QUETIAPINE FUMA25 MG PO; +RISPERIDONE0.25 M2 PO; +TYLENOL325 M1 PO; +VANCOMYCIN HCL125 MG PO
[2020-09-25 17:08] LABS: BILIRUBIN Negative (Negative); BLOOD Negative (Negative); CLARITY Clear (Clear); COLOR Yellow (Yellow); GLUCOSE Negative (Negative); KETONE Negative (Negative); LEUKO ESTERASE 3+ (Negative); NITRITE Negative (Negative); SPECIFIC GRAVITY 1.015 (1.001-1.030)
[2020-09-25 17:12] LABS: HEMATOCRIT 38.9 % (42.0-52.0); MEAN CELL VOLUME 97.5 fl (80.0-94.0); MEAN CORPUSCULAR HGB 30.8 pg (27.0-31.0); MEAN CORPUSCULAR HGB CONC 31.6 g/dl (33.0-37.0); MEAN PLATELET VOLUME 9.5 fl (9.6-12.3); RED BLOOD COUNT 3.99 10*6/uL (4.50-5.90); RED CELL DISTRI WIDTH 15.6 % (0-14.5); WHITE BLOOD COUNT 7.2 10*3/uL (4.8-10.8)
[2020-09-25 17:40] LABS: ALBUMIN 2.8 gm/dl (3.1-4.5); ALKALINE PHOSPHATASE 103 U/L (45-117); BUN 7 mg/dl (7-24); CHLORIDE 108 mmol/L (98-107); CREATININE 0.68 mg/dL (0.70-1.30); IRON 29 ug/dL (65-175); POTASSIUM 2.8 mmol/L (3.5-5.1); SGOT/AST 16 IU/L (3-35); SGPT/ALT 9 U/L (12-78); SODIUM 144 mmol/L (136-145); TOTAL PROTEIN 7.6 gm/dL (6.4-8.2)
[2020-09-25 17:47] LABS: BACTERIA 1+; MUCOUS TRACE; WBC 16-20 wbc/hpf (0-5)
[2020-09-25 17:57] LABS: FERRITIN 327.4 ng/mL (22.0-322.0); VITAMIN D, 25-HYDROXY 37.7 ng/mL (30-100)
[2020-09-25 18:02] LABS: FREE T4 1.58 ng/dl (0.76-1.46)
== END | disposition home or self-care (01) ==
LOC: RESCLI 01:27
PROVIDERS: Hospitalist; ATTEND Internal Medicine Nephrology
DX: Z23 Encounter for immunization (principal); E61.1 Iron deficiency; Q90.9 Down syndrome, unspecified; R44.3 Hallucinations, unspecified; E03.8 Other specified hypothyroidism; E11.9 Type 2 diabetes mellitus without complications

== ENCOUNTER 2020-10-11 16:04 | Observation (INO) | payer OTHER ==
[~2020-10-11] VITALS: Ht 152.4 cm; Wt 41.5 kg
[~2020-10-11 16:04] MED LIST changes: -FLAGYL500 MG PO; -HYDROCODONE-AC1 EAC1 PO; -LEVOTHYROXINE75 MCG PO; -PRAVASTATIN SOD80 MG PO; -PREDNISONE20 M1 PO; -QUETIAPINE FUMA25 MG PO
[2020-10-11 16:20] VITALS: BP 109/67
[2020-10-11 17:31] LABS: BASO # 0.1 10*3/uL (0.0-0.1); EOS # 0.1 10*3/uL (0.0-0.4); EOS % 2.1 % (1.0-4.0); HEMATOCRIT 40.9 % (42.0-52.0); LYMPH # 2.1 10*3/uL (1.3-4.4); LYMPH % 34.2 % (27.0-41.0); MEAN CELL VOLUME 96.5 fl (80.0-94.0); MEAN CORPUSCULAR HGB 31.1 pg (27.0-31.0); MEAN CORPUSCULAR HGB CONC 32.3 g/dl (33.0-37.0); MEAN PLATELET VOLUME 9.2 fl (9.6-12.3); MONO # 0.5 10*3/uL (0.1-1.0); MONO % 7.8 % (3.0-9.0); NEUT # 3.4 10*3/uL (2.3-7.9); NEUT % 54.7 % (47.0-73.0); PLATELET COUNT AUTOMATED 251 10*3/uL (130-400); RED BLOOD COUNT 4.24 10*6/uL (4.50-5.90); RED CELL DISTRI WIDTH 15.5 % (0-14.5); WHITE BLOOD COUNT 6.1 10*3/uL (4.8-10.8)
[2020-10-11 17:47] LABS: ALBUMIN 3.3 gm/dl (3.1-4.5); ALKALINE PHOSPHATASE 88 U/L (45-117); BUN 12 mg/dl (7-24); CHLORIDE 114 mmol/L (98-107); CREATININE 0.82 mg/dL (0.70-1.30); POTASSIUM 2.9 mmol/L (3.5-5.1); SGOT/AST 12 IU/L (3-35); SGPT/ALT 8 U/L (12-78); SODIUM 147 mmol/L (136-145); TOTAL PROTEIN 7.6 gm/dL (6.4-8.2)
[2020-10-11 17:57] LABS: TROPONIN I < 0.015 ng/ml (<0.045)
[2020-10-11 18:11] LABS: BILIRUBIN Negative (Negative); BLOOD 2+ (Negative); CLARITY Cloudy (Clear); COLOR Yellow (Yellow); GLUCOSE Negative (Negative); KETONE Negative (Negative); LEUKO ESTERASE 3+ (Negative); NITRITE Negative (Negative)
[2020-10-11 18:15] LABS: BACTERIA 1+; EPITHELIAL CELLS 0-2; WBC 0-2 wbc/hpf (0-5)
[2020-10-11 19:35] VITALS: BP 108/66
[2020-10-11 20:26] VITALS: BP 108/68
--- NOTE | 2020-10-11 21:26 | NUR ---
PT REPPORT RECEIVED FROM PRIOR SHIFT. PT RESTING ON CART. NO DISTRESS AWAITING BED ASSIGNMENT.
--- NOTE | 2020-10-11 21:54 | NUR ---
PT TRANSPORTED TO LEVEL 5 VIA CART ON MONITOR.
[2020-10-11 22:10] VITALS: BP 134/71
--- NOTE | 2020-10-11 22:10 | NUR ---
Time: 2209 A 55 year old MALE admitted to 5E under services of SABRINA VAZQUEZ DO. Pt. arrived via stretcher from ER. Chief complaint: MIRTHA. JING KUMAR
--- NOTE | 2020-10-11 22:33 | NUR ---
CALLED PATIENT'S MOTHER AT [phone]. NOT HOME AT THIS TIME. NUMBER TO NURSES STATION LEFT WITH FAMILY MEMBER FOR MOTHER TO RETURN PHONE CALL TO HELP ANSWER ADMISSION QUESTIONS
[2020-10-11] MEDS ORDERED: PRAVASTATIN SOD80 MG PO (22:44)
[2020-10-11] MEDS ORDERED: LEVOTHYROXINE75 MCG PO (22:45)
--- NOTE | 2020-10-11 22:55 | NUR ---
MOTHER ELBERT CALLED BACK AND ANSWERED ADMISSION QUESTIONS. SHE STATES THAT HER MEDICINE LIST THAT SHE LEFT HERE IS NOT CORRECT AND SHE WILL HAVE TO LOOK THROUGH HIS MEDICATIONS AND CALL BACK TOMORROW WITH THE CORRECT ONES.
--- NOTE | 2020-10-12 01:00 | NUR ---
PATIENT RESTING IN BED WITH NO S/S OF DISTRESS. BED IN LOWEST POSITION, BED ALARM ON, CALL LIGHT IN REACH
[2020-10-12 07:14] LABS: BASO % 0.5 % (0.0-1.0); EOS # 0.2 10*3/uL (0.0-0.4); EOS % 2.3 % (1.0-4.0); HEMATOCRIT 37.3 % (42.0-52.0); LYMPH # 1.7 10*3/uL (1.3-4.4); LYMPH % 23.3 % (27.0-41.0); MEAN CELL VOLUME 99.5 fl (80.0-94.0); MEAN CORPUSCULAR HGB 31.2 pg (27.0-31.0); MEAN CORPUSCULAR HGB CONC 31.4 g/dl (33.0-37.0); MEAN PLATELET VOLUME 8.8 fl (9.6-12.3); MONO # 0.5 10*3/uL (0.1-1.0); MONO % 7.3 % (3.0-9.0); NEUT # 4.9 10*3/uL (2.3-7.9); NEUT % 66.3 % (47.0-73.0); PLATELET COUNT AUTOMATED 203 10*3/uL (130-400); RED BLOOD COUNT 3.75 10*6/uL (4.50-5.90); RED CELL DISTRI WIDTH 15.4 % (0-14.5); WHITE BLOOD COUNT 7.4 10*3/uL (4.8-10.8)
[2020-10-12 07:36] LABS: BUN 11 mg/dl (7-24); CHLORIDE 113 mmol/L (98-107); CREATININE 0.78 mg/dL (0.70-1.30); SODIUM 148 mmol/L (136-145)
[2020-10-12 08:00] VITALS: BP 131/72
[2020-10-12 12:00] VITALS: BP 148/82
[2020-10-12] MEDS ORDERED: QUETIAPINE FUMA25 MG PO (12:02)
[2020-10-12 16:00] VITALS: BP 129/81
--- NOTE | 2020-10-12 16:26 | NUR ---
CHAIR ALARM WENT OFF. UPON ENTERING ROOM, PT WENT DOWN TO HIS KNEES AFTER TRYING TO STAND. DOCTOR CHRIS AND NURSING PLANT ASSIGNER NOTIFIED. NO WOUNDS, OPEN AREAS OR PAIN NOTED. WILL CONTINUE TO MONITOR.
[2020-10-12 20:00] VITALS: BP 145/95
--- NOTE | 2020-10-12 21:39 | NUR ---
ASSUMED CARE OF PATIENT. PATIENT IS AWAKE AND ALERT RESTING IN BED WITH EASY AND REGULAR RESPERS ON ROOM AIR. ASSESSMENT IS COMPLETE WITH NO C/O OR S/S OF DISTRESS NOTED AT THIS TIME. BED IS LOW, LOCKED, ALARMED, AND CALL LIGHT IS WITHIN REACH. WILL CONTINUE TO MONITOR, SEE INTERVENTIONS.
[2020-10-13] VITALS: BP 141/88
--- NOTE | 2020-10-13 02:00 | NUR ---
PATIENT AWAKE WATCHING TV. RESPERS EASY AND REGULAR. CALL LIGHT IS WITHIN REACH. WILL CONTINUE TO MONITOR.
--- NOTE | 2020-10-13 03:03 | NUR ---
BED BATH GIVEN BY NURSING ASSISTANTS. BED IS LOW, LOCKED, ALARMED, AND CALL LIGHT IS WITHIN REACH. WILL CONTINUE TO MONITOR.
--- NOTE | 2020-10-13 03:16 | NUR ---
CHART CHECK COMPLETE.
[2020-10-13 06:34] LABS: BASO % 0.4 % (0.0-1.0); EOS % 0.4 % (1.0-4.0); HEMATOCRIT 37.8 % (42.0-52.0); LYMPH # 1.6 10*3/uL (1.3-4.4); LYMPH % 17.1 % (27.0-41.0); MEAN CELL VOLUME 97.2 fl (80.0-94.0); MEAN CORPUSCULAR HGB 30.3 pg (27.0-31.0); MEAN CORPUSCULAR HGB CONC 31.2 g/dl (33.0-37.0); MEAN PLATELET VOLUME 9.8 fl (9.6-12.3); MONO # 0.4 10*3/uL (0.1-1.0); MONO % 4.5 % (3.0-9.0); NEUT # 7.1 10*3/uL (2.3-7.9); NEUT % 77.3 % (47.0-73.0); PLATELET COUNT AUTOMATED 235 10*3/uL (130-400); RED BLOOD COUNT 3.89 10*6/uL (4.50-5.90); RED CELL DISTRI WIDTH 15.5 % (0-14.5); WHITE BLOOD COUNT 9.2 10*3/uL (4.8-10.8)
[2020-10-13 06:41] LABS: BUN 7 mg/dl (7-24); CHLORIDE 111 mmol/L (98-107); CREATININE 0.58 mg/dL (0.70-1.30); SODIUM 144 mmol/L (136-145)
[2020-10-13 06:42] LABS: POTASSIUM 4.1 mmol/L (3.5-5.1)
--- NOTE | 2020-10-13 07:21 | NUR ---
PHYSICAL THERAPY Screen received pt admitted with pneumonia and is + for COVID per notes pt recently intubated 10/12. Please consult PT as medically appropriate, thank you Jennifer Carrizales PT
--- NOTE | 2020-10-13 07:24 | NUR ---
PHYSICAL THERAPY Screen received pt admitted with UTI and constipation please consult PT if pt has a decline in functional status below baseline thank you Jennifer Carrizales PT
[2020-10-13 08:00] VITALS: BP 126/74
[2020-10-13] MEDS ORDERED: HYDROCODONE-AC1 EAC1 PO (10:39)
[2020-10-13] MEDS ORDERED: PRAVASTATIN SOD80 MG PO (10:53)
[2020-10-13] MEDS ORDERED: QUETIAPINE FUMA25 MG PO (10:53)
--- NOTE | 2020-10-13 10:54 | NUR ---
DR. HERRERA AND RESIDENTS INTO SEE PATIENT. UPDATED ON MED REC.
[2020-10-13 12:00] VITALS: BP 132/68
[2020-10-13 16:00] VITALS: BP 78/50
--- NOTE | 2020-10-13 16:30 | NUR ---
DR MAN NOTIFIED OF HYPOTENSION AT 78/50. IVF TO BE GIVEN.
[2020-10-13 17:10] VITALS: BP 102/58
[2020-10-13 20:00] VITALS: BP 117/67
[2020-10-14] VITALS: BP 103/63
--- NOTE | 2020-10-14 00:01 | NUR ---
CHART CHECK COMPLETE.
[2020-10-14 06:18] LABS: BASO % 0.5 % (0.0-1.0); EOS # 0.1 10*3/uL (0.0-0.4); EOS % 1.8 % (1.0-4.0); HEMATOCRIT 33.7 % (42.0-52.0); LYMPH # 1.9 10*3/uL (1.3-4.4); MEAN CELL VOLUME 99.7 fl (80.0-94.0); MEAN CORPUSCULAR HGB 31.1 pg (27.0-31.0); MEAN CORPUSCULAR HGB CONC 31.2 g/dl (33.0-37.0); MEAN PLATELET VOLUME 9.2 fl (9.6-12.3); MONO # 0.5 10*3/uL (0.1-1.0); MONO % 7.5 % (3.0-9.0); NEUT # 3.7 10*3/uL (2.3-7.9); NEUT % 59.9 % (47.0-73.0); PLATELET COUNT AUTOMATED 167 10*3/uL (130-400); RED BLOOD COUNT 3.38 10*6/uL (4.50-5.90); RED CELL DISTRI WIDTH 15.7 % (0-14.5); WHITE BLOOD COUNT 6.2 10*3/uL (4.8-10.8)
[2020-10-14 06:33] LABS: BUN 7 mg/dl (7-24); CHLORIDE 114 mmol/L (98-107); CREATININE 0.67 mg/dL (0.70-1.30); POTASSIUM 4.2 mmol/L (3.5-5.1); SODIUM 144 mmol/L (136-145)
--- NOTE | 2020-10-14 07:45 | NUR ---
Shift chart check completed.
[2020-10-14 08:00] VITALS: BP 131/79
--- NOTE | 2020-10-14 10:10 | NUR ---
CM spoke to motherCaitlin, via phone. Patient states lives at home with his mother and sister. There are 5 steps in the home. Physician: [facility] Pharmacy: [facility] Home health services: would like [facility] on discharge Patient's level of ADLs: MINIMAL ASSIST Patient has working utilities: yes DME: cane, walker Follow-up physician's appointment after d/c: will be made by the hospitalist nurse director upon discharge Does patient want to access PORTAL?: no Discharge plan discussed with mother, Caitlin, on the phone. Patient lives with her and his sister. He needs minimal assistance with his ADLs and ambulates with either a cane or a walker. Discussed short term rehab and she declines. Discussed home health care services and she is agreeable. When provided with a list of agencies she chose [facility] as she has had them in the past. When medically stable he will be discharged to home with [facility] services. His mother will provide transportation on discharge. GRISELDA NIXON
[2020-10-14 12:07] VITALS: BP 119/65
--- NOTE | 2020-10-14 15:00 | NUR ---
ASSUMED CARE OF PT. RESTING QUIETLY IN BED WATCHING T.V. CALL LIGHT IN REACH.
[2020-10-14 16:00] VITALS: BP 122/74
[2020-10-14 20:00] VITALS: BP 111/67
--- NOTE | 2020-10-14 20:23 | NUR ---
ASSUMED CARE OF PATIENT. PATIENT IS AWAKE AND ALERT RESTING IN BED WITH EASY AND REGULAR RESPERS ON ROOM AIR. ASSESSMENT IS COMPLETE WITH NO C/O OR S/S OF DISTRESS NOTED AT THIS TIME. BED IS LOW, LOCKED, ALARMED, AND CALL LIGHT IS WITHIN REACH. BEDSIDE GLUCOSE 86. WILL CONTINUE TO MONITOR, SEE INTERVENTIONS.
[2020-10-15] VITALS: BP 138/74
--- NOTE | 2020-10-15 02:42 | NUR ---
CHART CHECK COMPLETE.
[2020-10-15 08:00] VITALS: BP 109/75
--- NOTE | 2020-10-15 08:12 | NUR ---
PT RESTING IN BED/ NO DISTRESS NOTED. WILL MONITOR
[2020-10-15 12:00] VITALS: BP 111/75
[2020-10-15 16:00] VITALS: BP 130/58
[2020-10-15 20:00] VITALS: BP 130/80
--- NOTE | 2020-10-15 20:00 | NUR ---
PATIENT RESTING IN BED WITH NO S/S OF DISTRESS NOTED. BED IN LOWEST POSITION. BED ALARM ON. CALL LIGHT IN REACH.
--- NOTE | 2020-10-15 22:58 | NUR ---
24 HR chart check completed.
[2020-10-16] VITALS: BP 133/86
[2020-10-16 08:00] VITALS: BP 96/67
--- NOTE | 2020-10-16 10:40 | NUR ---
patient's mom/caregiver chose [facility] to see patient when discharged. per MDT meeting, [facility] mortician supplies sales representative stated they could not see patient due to "unsafe living conditions at home". case management attempted to contact patient's mom regarding another home health company. long term care social worker will also follow
[2020-10-16 12:00] VITALS: BP 122/75
--- NOTE | 2020-10-16 13:45 | NUR ---
New home health referral and order faxed to [facility]. Waiting on review/acceptance.
[2020-10-16 16:00] VITALS: BP 136/85
--- NOTE | 2020-10-16 19:30 | NUR ---
PATIENT RESTING IN BED. RESPS WNL. NO S/S OF DISTRESS NOTED. BED IN LOWEST POSITION. BED ALARM ON. CALL LIGHT IN REACH.
[2020-10-16 20:00] VITALS: BP 104/70
--- NOTE | 2020-10-16 20:30 | NUR ---
24 HR chart check completed.
[2020-10-17] VITALS: BP 98/61
[2020-10-17 06:42] LABS: BASO # 0.1 10*3/uL (0.0-0.1); BASO % 0.8 % (0.0-1.0); EOS # 0.1 10*3/uL (0.0-0.4); EOS % 1.4 % (1.0-4.0); HEMATOCRIT 43.1 % (42.0-52.0); LYMPH # 1.7 10*3/uL (1.3-4.4); LYMPH % 26.6 % (27.0-41.0); MEAN CELL VOLUME 99.3 fl (80.0-94.0); MEAN CORPUSCULAR HGB 31.3 pg (27.0-31.0); MEAN CORPUSCULAR HGB CONC 31.6 g/dl (33.0-37.0); MEAN PLATELET VOLUME 9.5 fl (9.6-12.3); MONO # 0.5 10*3/uL (0.1-1.0); MONO % 8.1 % (3.0-9.0); NEUT # 4.1 10*3/uL (2.3-7.9); NEUT % 62.8 % (47.0-73.0); PLATELET COUNT AUTOMATED 272 10*3/uL (130-400); RED BLOOD COUNT 4.34 10*6/uL (4.50-5.90); RED CELL DISTRI WIDTH 15.2 % (0-14.5); WHITE BLOOD COUNT 6.5 10*3/uL (4.8-10.8)
[2020-10-17 06:48] LABS: CREATININE 0.76 mg/dL (0.70-1.30)
[2020-10-17 08:00] VITALS: BP 119/83
--- NOTE | 2020-10-17 08:03 | NUR ---
REHAB TRAINER CONTACTED PATIENTS MOTHER ELBERT ABOUT DISCHARGE PLANS. REHAB TRAINER EXPLAINED [facility] IS NOT ACCEPTING THE PATIENT. REHAB TRAINER ASKED IF WE COULD GET ANOTHER HOME HEALTH COMPANY, PATIENTS MOTHER WAS AGREEABLE. PATIENTS MOTHER STATED THAT HER DAUGHTER IS NOW STAYING WITH THEM. WHEN DISCHARGED THE PATIENT WILL RETURN HOME WITH HIS MOTHER AND SISTER.
--- NOTE | 2020-10-17 09:00 | NUR ---
patient will return home with family with [facility] health will see upon discharge. no other needs at this time
[2020-10-17 12:00] VITALS: BP 119/51
--- NOTE | 2020-10-17 13:06 | NUR ---
ASSESSMENT SPECIALIST RECEIVED CALL FROM GEOVANNA GREGORIO. SHE STATED NO FAMILY IS ABLE TO TRANSPORT THIS PATIENT HOME DUE TO WEATHER. ASSESSMENT SPECIALIST CONTACTED [facility] AND ARRANGED FOR A 2:30PM TRANSPORT. THEY WILL NEED TO GET AUTH THROUGH THE INSURANCE. ASSESSMENT SPECIALIST FAXED OVER DEMOGRAPHICS TO [facility]. ASSESSMENT SPECIALIST CONTACTED GEOVANNA GREGORIO BACK AND INFORMED HER OF 2:30PM TRANSPORT. ASSESSMENT SPECIALIST SPOKE WITH PATIENTS MOTHER ELBERT AND SHE IS AWARE OF TRANSPORT/DISCHARGE.
--- NOTE | 2020-10-17 13:08 | NUR ---
[facility] TO CLINICAL NURSING INSTRUCTOR PATIENT AT 14:30 FOR DISCHARGE HOME. ATTEMPTING TO NOTIFY HIS MOTHER BY PHONE.
--- NOTE | 2020-10-17 13:28 | NUR ---
Elis from [facility] called and stated they are accepting this patient; they will contact patients mother to set up a date and time
--- NOTE | 2020-10-17 14:58 | NUR ---
PATIENT DISCHARGED TO HOME BY [facility] AT THIS TIME.
== END 2020-10-17 14:25 | disposition home or self-care (01) ==
LOC: ED 16:04 → EDHOLD 20:18 → 5E 21:26
PROVIDERS: Emergency Medicine; Family Medicine; Internal Medicine; ADMIT Internal Medicine; ATTEND Internal Medicine
DX: N39.0 Urinary tract infection, site not specified (principal); K59.00 Constipation, unspecified; D53.9 Nutritional anemia, unspecified; E87.0 Hyperosmolality and hypernatremia; E87.8 Other disorders of electrolyte and fluid balance, not elsewhere classified; Q90.9 Down syndrome, unspecified; E78.00 Pure hypercholesterolemia, unspecified; E11.65 Type 2 diabetes mellitus with hyperglycemia; I10 Essential (primary) hypertension; E03.9 Hypothyroidism, unspecified; E43 Unspecified severe protein-calorie malnutrition; G93.41 Metabolic encephalopathy

== ENCOUNTER → 2020-10-11 | Outpatient (CLI) | payer OTHER | END | disposition home or self-care (01) | LOC: RESCLI 14:32 | PROVIDERS: ATTEND Internal Medicine Nephrology | DX: K59.00 Constipation, unspecified (principal); G93.41 Metabolic encephalopathy; E86.0 Dehydration; N30.00 Acute cystitis without hematuria; D50.9 Iron deficiency anemia, unspecified; E87.6 Hypokalemia; Q90.9 Down syndrome, unspecified; E03.9 Hypothyroidism, unspecified; E11.9 Type 2 diabetes mellitus without complications; I10 Essential (primary) hypertension; E78.00 Pure hypercholesterolemia, unspecified; Z79.899 Other long term (current) drug therapy; Z98.890 Other specified postprocedural states; Z88.0 Allergy status to penicillin; Z88.8 Allergy status to other drugs, medicaments and biological substances ==

== ENCOUNTER → 2020-11-01 | Outpatient (CLI) | payer OTHER ==
[~2020-11-01] MED LIST changes: +FLAGYL500 MG PO; +HYDROCODONE-AC1 EAC1 PO; +LEVOTHYROXINE75 MCG PO; +PRAVASTATIN SOD80 MG PO; +PREDNISONE20 M1 PO; +QUETIAPINE FUMA25 MG PO
== END | disposition home or self-care (01) ==
LOC: RESCLI 00:22
PROVIDERS: ATTEND Internal Medicine Nephrology
DX: E55.9 Vitamin D deficiency, unspecified (principal); E11.9 Type 2 diabetes mellitus without complications; E78.5 Hyperlipidemia, unspecified; E03.9 Hypothyroidism, unspecified; N39.0 Urinary tract infection, site not specified; R31.9 Hematuria, unspecified; K21.9 Gastro-esophageal reflux disease without esophagitis; K59.00 Constipation, unspecified; N20.0 Calculus of kidney; D50.9 Iron deficiency anemia, unspecified; Q90.9 Down syndrome, unspecified

== ENCOUNTER → 2020-11-08 | Outpatient (CLI) | payer OTHER | END | disposition home or self-care (01) | LOC: US 12:39 | PROVIDERS: ATTEND Internal Medicine Nephrology | DX: N20.0 Calculus of kidney (principal) ==

== ENCOUNTER 2020-11-15 13:27 | Emergency (ER) | payer OTHER ==
[~2020-11-15] VITALS: Ht 157.4 cm; Wt 45.4 kg
[~2020-11-15 13:27] MED LIST changes: -FLAGYL500 MG PO; -PREDNISONE20 M1 PO
[2020-11-15 14:33] LABS: BASO % 0.3 % (0.0-1.0); EOS # 0.2 10*3/uL (0.0-0.4); EOS % 1.8 % (1.0-4.0); HEMATOCRIT 34.7 % (42.0-52.0); LYMPH # 1.3 10*3/uL (1.3-4.4); LYMPH % 12.2 % (27.0-41.0); MEAN CELL VOLUME 106.1 fl (80.0-94.0); MEAN CORPUSCULAR HGB CONC 31.1 g/dl (33.0-37.0); MEAN PLATELET VOLUME 9.2 fl (9.6-12.3); MONO # 0.6 10*3/uL (0.1-1.0); NEUT # 8.3 10*3/uL (2.3-7.9); NEUT % 79.3 % (47.0-73.0); PLATELET COUNT AUTOMATED 158 10*3/uL (130-400); RED BLOOD COUNT 3.27 10*6/uL (4.50-5.90); WHITE BLOOD COUNT 10.5 10*3/uL (4.8-10.8)
[2020-11-15 14:53] LABS: ALBUMIN 2.5 gm/dl (3.1-4.5); ALKALINE PHOSPHATASE 56 U/L (45-117); BUN 13 mg/dl (7-24); CHLORIDE 116 mmol/L (98-107); CREATININE 0.63 mg/dL (0.70-1.30); LIPASE 65 U/L (73-393); POTASSIUM 3.7 mmol/L (3.5-5.1); SGOT/AST 13 IU/L (3-35); SGPT/ALT 22 U/L (12-78); SODIUM 148 mmol/L (136-145); TOTAL PROTEIN 5.9 gm/dL (6.4-8.2)
[2020-11-15 14:55] LABS: ACT PARTIAL THROMBO TIME 28.7 SECONDS (20.0-32.1)
[2020-11-15 14:59] LABS: TROPONIN I < 0.015 ng/ml (<0.045)
[2020-11-15] MEDS ORDERED: PREDNISONE20 M1 PO (22:01)
[2020-11-15] MEDS ORDERED: FLAGYL500 MG PO (22:01)
== END 2020-11-15 23:34 | disposition home or self-care (01) ==
LOC: ED 13:27
PROVIDERS: Emergency Medicine
DX: K52.9 Noninfective gastroenteritis and colitis, unspecified (principal); Z88.0 Allergy status to penicillin; Z88.2 Allergy status to sulfonamides; Z88.8 Allergy status to other drugs, medicaments and biological substances; Z79.899 Other long term (current) drug therapy

== ENCOUNTER → 2021-06-04 | Outpatient (CLI) | payer OTHER ==
[~2021-06-04] MED LIST changes: +FLAGYL500 MG PO; +PREDNISONE20 M1 PO
[2021-06-04 11:29] LABS: CHOLESTEROL 163 mg/dL (<200); LDL CHOLESTEROL 100 mg/dL (9-159); TRIGLYCERIDES 113 mg/dl (<150)
== END | disposition home or self-care (01) ==
LOC: LAB 10:49
PROVIDERS: ATTEND Psychiatry & Neurology Neurology
DX: I63.9 Cerebral infarction, unspecified (principal)

== ENCOUNTER 2021-11-07 16:25 | Emergency (ER) | payer OTHER ==
[~2021-11-07] VITALS: Wt 43.1 kg
[2021-11-07 16:33] VITALS: BP 126/63
[2021-11-07 17:35] LABS: BASO % 0.3 % (0.0-1.0); EOS % 0.3 % (1.0-4.0); HEMATOCRIT 36.8 % (42.0-52.0); LYMPH # 0.5 10*3/uL (1.3-4.4); LYMPH % 7.9 % (27.0-41.0); MEAN CELL VOLUME 103.1 fl (80.0-94.0); MEAN CORPUSCULAR HGB 32.2 pg (27.0-31.0); MEAN CORPUSCULAR HGB CONC 31.3 g/dl (33.0-37.0); MEAN PLATELET VOLUME 9.9 fl (9.6-12.3); MONO # 0.4 10*3/uL (0.1-1.0); MONO % 6.7 % (3.0-9.0); NEUT # 5.3 10*3/uL (2.3-7.9); NEUT % 84.3 % (47.0-73.0); PLATELET COUNT AUTOMATED 115 10*3/uL (130-400); RED BLOOD COUNT 3.57 10*6/uL (4.50-5.90); RED CELL DISTRI WIDTH 14.3 % (0-14.5); WHITE BLOOD COUNT 6.2 10*3/uL (4.8-10.8)
[2021-11-07 17:45] LABS: ALBUMIN 2.6 gm/dl (3.1-4.5); ALKALINE PHOSPHATASE 91 U/L (45-117); BUN 20 mg/dl (7-24); CHLORIDE 114 mmol/L (98-107); CREATININE 1.39 mg/dL (0.70-1.30); POTASSIUM 3.6 mmol/L (3.5-5.1); SGOT/AST 21 IU/L (3-35); SGPT/ALT 16 U/L (12-78); SODIUM 146 mmol/L (136-145); TOTAL PROTEIN 7.3 gm/dL (6.4-8.2)
[2021-11-07 19:15] LABS: BILIRUBIN Negative (Negative); BLOOD 3+ (Negative); CLARITY Turbid (Clear); COLOR Yellow (Yellow); GLUCOSE Negative (Negative); KETONE Negative (Negative); LEUKO ESTERASE 3+ (Negative); NITRITE Negative (Negative); SPECIFIC GRAVITY 1.015 (1.001-1.030); UROBILINOGEN 0.2 E.U./dl (0.0-1.0)
[2021-11-07 19:25] LABS: BACTERIA 3+; EPITHELIAL CELLS 0-2; RBC TNTC rbc/hpf (0-2); WBC TNTC wbc/hpf (0-5)
[2021-11-07] MEDS ORDERED: SEROQUEL50 MG PO (20:46)
[2021-11-07] MEDS ORDERED: SYNTHROID,LEVO75 MCG PO (20:47)
[2021-11-07 22:15] VITALS: BP 108/72
[2021-11-08 01:32] VITALS: BP 93/49
[2021-11-08 03:00] VITALS: BP 92/56
== END 2021-11-08 03:15 ==
LOC: ED 16:25 → EDHOLD 20:12 → 4E 22:17 → EDHOLD 22:17 → ED 11-08 03:15
PROVIDERS: Internal Medicine
DX: N39.0 Urinary tract infection, site not specified (principal); N13.2 Hydronephrosis with renal and ureteral calculous obstruction